=== PATIENT | female | born 1945 | race Two or more races ===

== ENCOUNTER 2021-06-30 21:17 | Inpatient (IN) | payer MEDICAID ==
[~2021-06-30] VITALS: Ht 160 cm; Wt 75.3 kg
[2021-06-30] MEDS ORDERED: ATOR20TA86 PO (21:51)
[2021-06-30] MEDS ORDERED: TRAM50TA4 PO (21:51)
[2021-06-30] MEDS ORDERED: LORA10TA7 PO (21:51)
[2021-06-30] MEDS ORDERED: ENAL-90 PO (21:51)
[2021-06-30] MEDS ORDERED: INSU100V SQ (21:51)
[2021-06-30] MEDS ORDERED: PHEN50 PO (21:51)
[2021-07-01 02:06] LABS: BASOPHILS % (AUTO) 0.8 % (0.0-2.0); EOSINOPHILS % (AUTO) 2.1 % (1.0-6.0); HEMATOCRIT 40.2 % (36-46); HEMOGLOBIN 13.2 g/dL (12.0-16.0); LYMPHOCYTES # (AUTO) 2.7 K/uL (1.0-4.8); LYMPHOCYTES % (AUTO) 31.1 % (22.0-44.0); MEAN CORPUSCULAR HEMOGLOBIN 29.1 pg (26.0-34.0); MEAN CORPUSCULAR HGB CONC 32.9 G/dL (31.0-37.0); MEAN CORPUSCULAR VOLUME 88 fL (80-100); MONOCYTES # (AUTO) 0.7 K/uL (0.1-1.0); MONOCYTES % (AUTO) 8.4 % (2.0-9.0); NEUTROPHILS % (AUTO) 57.6 % (40.0-70.0); PLATELET COUNT (AUTO) 242 K/uL (150-450); RED BLOOD CELL COUNT(AUTO) 4.55 MIL/uL (4.00-5.20); RED CELL DISTRIBUTION WIDTH 13.6 % (11.5-14.5)
[2021-07-01] MEDS ORDERED: SODIUM CHLORIDE 0.9% 1,900 ML IV ONE (02:15)
[2021-07-01] MEDS ORDERED: PIPERACILLIN SODIUM/TAZOBACTAM 4.5 GM in DEXTROSE 5%-WATER 100 ML IV ONE (02:30)
[2021-07-01] MEDS ORDERED: VANCOMYCIN HCL 1.25 GM in DEXTROSE 5%-WATER 250 ML IV ONE (02:30)
[2021-07-01 02:43] LABS: COVID AG,FIA SOURCE NASAL SWAB
[2021-07-01 03:58] LABS: CALCIUM, TOTAL 9.3 mg/dL (8.8-10.5); CREATININE 1.19 mg/dL (0.60-1.30); POTASSIUM 4.1 mmol/L (3.5-5.1)
[2021-07-01 04:04] LABS: ALBUMIN 3.2 g/dL (3.4-5.0); BILIRUBIN,TOTAL 0.3 mg/dL (0.1-1.0); TOTAL PROTEIN, SERUM 7.8 g/dL (6.4-8.2)
[2021-07-01] MEDS ORDERED: DEXTROSE 50%-WATER 25 GM/50 ML SYRINGE IVP PRN (06:30)
[2021-07-01] MEDS ORDERED: ONDANSETRON HCL 4 MG/2 ML VIAL IVP PRN (06:30)
[2021-07-01] MEDS: INSULIN LISPRO 100 UNITS/ML SQ PRN ×4 (07:33→20:09)
[2021-07-01 07:37] LABS: GLUCOSE,POINT OF CARE 264 MG/DL (70-110)
[2021-07-01 08:40] VITALS: BP 119/70
[2021-07-01] MEDS: LORATADINE 10 MG TABLET PO SCH (09:00)
[2021-07-01] MEDS: ENALAPRIL MALEATE 10 MG TABLET PO SCH (09:00)
[2021-07-01 11:57] VITALS: BP 137/55
[2021-07-01] MEDS: HEPARIN SODIUM,PORCINE 5,000 UNITS/ML VIAL SQ SCH ×3 (12:07→23:22)
[2021-07-01] MEDS: PHENYTOIN 50 MG CHEWABLE TABLET PO SCH ×2 (12:07→19:46)
[2021-07-01] MEDS: ATORVASTATIN CALCIUM 20 MG TABLET PO SCH (12:07)
[2021-07-01 13:51] VITALS: BP 136/57
[2021-07-01 17:09] LABS: GLUCOMETER DEV NAME(LOC) 5S.1; GLUCOSE,POINT OF CARE 169 MG/DL (70-110)
[2021-07-01 17:18] LABS: GLUCOMETER DEV NAME(LOC) 5N.3; GLUCOSE,POINT OF CARE 276 MG/DL (70-110)
[2021-07-01 17:24] VITALS: BP 130/62
[2021-07-01 19:25] VITALS: BP 133/51
[2021-07-01] MEDS: INSULIN GLARGINE,HUM.REC.ANLOG 100 UNITS/ML SQ SCH (20:10)
[2021-07-01 22:36] LABS: GLUCOMETER DEV NAME(LOC) 5N.3; GLUCOSE,POINT OF CARE 255 MG/DL (70-110)
[2021-07-01 23:10] VITALS: BP 131/58
[2021-07-02 04:45] VITALS: BP 136/65
[2021-07-02 05:24] LABS: GLUCOMETER DEV NAME(LOC) 5N.3; GLUCOSE,POINT OF CARE 243 MG/DL (70-110)
[2021-07-02] MEDS: INSULIN LISPRO 100 UNITS/ML SQ PRN ×4 (05:55→21:35)
[2021-07-02 07:35] VITALS: BP 110/59
[2021-07-02] MEDS: HEPARIN SODIUM,PORCINE 5,000 UNITS/ML VIAL SQ SCH ×4 (07:56→23:57)
[2021-07-02] MEDS: ACETAMINOPHEN 325 MG TABLET PO PRN (07:57)
[2021-07-02] MEDS: ASPIRIN 81 MG CHEWABLE TABLET PO SCH (07:57)
[2021-07-02] MEDS: ATORVASTATIN CALCIUM 20 MG TABLET PO SCH (07:57)
[2021-07-02] MEDS: LORATADINE 10 MG TABLET PO SCH (07:57)
[2021-07-02] MEDS: PHENYTOIN 50 MG CHEWABLE TABLET PO SCH ×2 (07:58→21:33)
[2021-07-02] MEDS: ENALAPRIL MALEATE 10 MG TABLET PO SCH (09:00)
[2021-07-02 11:18] VITALS: BP 103/56
[2021-07-02 13:31] LABS: GLUCOMETER DEV NAME(LOC) 5N.1C; GLUCOSE,POINT OF CARE 312 MG/DL (70-110)
[2021-07-02 16:23] VITALS: BP 132/56
[2021-07-02 19:42] VITALS: BP 151/50
[2021-07-02] MEDS: INSULIN GLARGINE,HUM.REC.ANLOG 100 UNITS/ML SQ SCH (21:34)
[2021-07-02 23:17] LABS: GLUCOMETER DEV NAME(LOC) 5N.3; GLUCOSE,POINT OF CARE 245 MG/DL (70-110)
[2021-07-02 23:17] LABS: GLUCOMETER DEV NAME(LOC) 5S.1; GLUCOSE,POINT OF CARE 198 MG/DL (70-110)
[2021-07-03] VITALS (7 sets, daily range): BP systolic 123–141; BP diastolic 54–73
[2021-07-03] MEDS: INSULIN LISPRO 100 UNITS/ML SQ PRN ×4 (06:08→20:45)
[2021-07-03 07:21] LABS: GLUCOMETER DEV NAME(LOC) 5S.1; GLUCOSE,POINT OF CARE 162 MG/DL (70-110)
[2021-07-03] MEDS: ASPIRIN 81 MG CHEWABLE TABLET PO SCH (09:27)
[2021-07-03] MEDS: ENALAPRIL MALEATE 10 MG TABLET PO SCH (09:27)
[2021-07-03] MEDS: ATORVASTATIN CALCIUM 20 MG TABLET PO SCH (09:27)
[2021-07-03] MEDS: HEPARIN SODIUM,PORCINE 5,000 UNITS/ML VIAL SQ SCH ×2 (09:27→16:17)
[2021-07-03] MEDS: LORATADINE 10 MG TABLET PO SCH (09:27)
[2021-07-03] MEDS: PHENYTOIN 50 MG CHEWABLE TABLET PO SCH ×2 (09:27→20:47)
[2021-07-03] MEDS: TraMADol HCL 50 MG TABLET PO PRN (09:28)
[2021-07-03 12:38] LABS: GLUCOMETER DEV NAME(LOC) 5S.2B; GLUCOSE,POINT OF CARE 276 MG/DL (70-110)
[2021-07-03 18:36] LABS: GLUCOMETER DEV NAME(LOC) 5S.1; GLUCOSE,POINT OF CARE 259 MG/DL (70-110)
[2021-07-03] MEDS: INSULIN GLARGINE,HUM.REC.ANLOG 100 UNITS/ML SQ SCH (20:45)
[2021-07-03] MEDS: ACETAMINOPHEN 325 MG TABLET PO PRN (20:46)
[2021-07-03 23:55] LABS: GLUCOMETER DEV NAME(LOC) 5N.3; GLUCOSE,POINT OF CARE 178 MG/DL (70-110)
[2021-07-04] MEDS: HEPARIN SODIUM,PORCINE 5,000 UNITS/ML VIAL SQ SCH ×3 (00:15→16:16)
[2021-07-04 04:58] VITALS: BP 141/66
[2021-07-04] MEDS: INSULIN LISPRO 100 UNITS/ML SQ PRN ×4 (06:03→20:04)
[2021-07-04 06:31] LABS: GLUCOMETER DEV NAME(LOC) 5S.1; GLUCOSE,POINT OF CARE 213 MG/DL (70-110)
[2021-07-04 08:51] VITALS: BP 112/70
[2021-07-04] MEDS: ASPIRIN 81 MG CHEWABLE TABLET PO SCH (09:11)
[2021-07-04] MEDS: PHENYTOIN 50 MG CHEWABLE TABLET PO SCH ×2 (09:11→20:05)
[2021-07-04] MEDS: LORATADINE 10 MG TABLET PO SCH (09:12)
[2021-07-04] MEDS: ENALAPRIL MALEATE 10 MG TABLET PO SCH (09:12)
[2021-07-04] MEDS: ATORVASTATIN CALCIUM 20 MG TABLET PO SCH (09:14)
[2021-07-04 11:38] LABS: GLUCOMETER DEV NAME(LOC) 5S.1; GLUCOSE,POINT OF CARE 236 MG/DL (70-110)
[2021-07-04 11:48] VITALS: BP 128/60
[2021-07-04 16:00] VITALS: BP 118/52
[2021-07-04 19:18] VITALS: BP 133/69
[2021-07-04] MEDS: INSULIN GLARGINE,HUM.REC.ANLOG 100 UNITS/ML SQ SCH (20:04)
[2021-07-05 00:03] VITALS: BP 143/79
[2021-07-05] MEDS: HEPARIN SODIUM,PORCINE 5,000 UNITS/ML VIAL SQ SCH ×3 (00:17→17:05)
[2021-07-05 04:15] VITALS: BP 132/78
[2021-07-05] MEDS: INSULIN LISPRO 100 UNITS/ML SQ PRN ×4 (06:42→20:59)
[2021-07-05 07:14] VITALS: BP 133/63
[2021-07-05] MEDS: PHENYTOIN 50 MG CHEWABLE TABLET PO SCH ×2 (08:38→20:58)
[2021-07-05] MEDS: ASPIRIN 81 MG CHEWABLE TABLET PO SCH (08:38)
[2021-07-05] MEDS: LORATADINE 10 MG TABLET PO SCH (08:39)
[2021-07-05] MEDS: ENALAPRIL MALEATE 10 MG TABLET PO SCH (08:39)
[2021-07-05] MEDS: ATORVASTATIN CALCIUM 20 MG TABLET PO SCH (08:39)
[2021-07-05 12:14] LABS: GLUCOMETER DEV NAME(LOC) 5S.1; GLUCOSE,POINT OF CARE 278 MG/DL (70-110)
[2021-07-05 15:49] VITALS: BP 132/47
[2021-07-05] MEDS: TraMADol HCL 50 MG TABLET PO PRN (17:11)
[2021-07-05 19:21] VITALS: BP 110/54
[2021-07-05] MEDS: INSULIN GLARGINE,HUM.REC.ANLOG 100 UNITS/ML SQ SCH (20:59)
[2021-07-05 21:34] LABS: GLUCOMETER DEV NAME(LOC) 5N.3; GLUCOSE,POINT OF CARE 235 MG/DL (70-110)
[2021-07-05 21:35] LABS: GLUCOMETER DEV NAME(LOC) 5N.3; GLUCOSE,POINT OF CARE 215 MG/DL (70-110)
[2021-07-05 21:35] LABS: GLUCOMETER DEV NAME(LOC) 5S.1; GLUCOSE,POINT OF CARE 242 MG/DL (70-110)
[2021-07-05 21:35] LABS: GLUCOMETER DEV NAME(LOC) 5N.3; GLUCOSE,POINT OF CARE 150 MG/DL (70-110)
[2021-07-05 21:35] LABS: GLUCOMETER DEV NAME(LOC) 5N.3; GLUCOSE,POINT OF CARE 303 MG/DL (70-110)
[2021-07-05 23:19] VITALS: BP 137/67
[2021-07-06] MEDS: HEPARIN SODIUM,PORCINE 5,000 UNITS/ML VIAL SQ SCH ×4 (00:39→23:56)
[2021-07-06 05:39] VITALS: BP 139/73
[2021-07-06] MEDS: INSULIN LISPRO 100 UNITS/ML SQ PRN ×3 (06:10→17:15)
[2021-07-06] MEDS: ASPIRIN 81 MG CHEWABLE TABLET PO SCH (07:48)
[2021-07-06] MEDS: PHENYTOIN 50 MG CHEWABLE TABLET PO SCH ×2 (07:48→20:17)
[2021-07-06] MEDS: ENALAPRIL MALEATE 10 MG TABLET PO SCH (07:48)
[2021-07-06] MEDS: LORATADINE 10 MG TABLET PO SCH (07:49)
[2021-07-06] MEDS: ATORVASTATIN CALCIUM 20 MG TABLET PO SCH (07:49)
[2021-07-06 07:52] LABS: GLUCOMETER DEV NAME(LOC) 5S.1; GLUCOSE,POINT OF CARE 201 MG/DL (70-110)
[2021-07-06 11:25] VITALS: BP 115/59
[2021-07-06 11:48] LABS: GLUCOMETER DEV NAME(LOC) 5N.3; GLUCOSE,POINT OF CARE 264 MG/DL (70-110)
[2021-07-06 18:17] LABS: GLUCOMETER DEV NAME(LOC) 5S.1; GLUCOSE,POINT OF CARE 190 MG/DL (70-110)
[2021-07-06 19:10] VITALS: BP 145/68
[2021-07-06] MEDS: INSULIN GLARGINE,HUM.REC.ANLOG 100 UNITS/ML SQ SCH (20:20)
[2021-07-06 23:30] VITALS: BP_SYST 118; BP_SYST 146; BP_DIAS 64; BP_DIAS 67
[2021-07-07] VITALS (7 sets, daily range): BP systolic 100–147; BP diastolic 45–74
[2021-07-07] MEDS: PHENYTOIN 50 MG CHEWABLE TABLET PO SCH ×2 (07:48→21:34)
[2021-07-07] MEDS: ATORVASTATIN CALCIUM 20 MG TABLET PO SCH (07:49)
[2021-07-07] MEDS: ENALAPRIL MALEATE 10 MG TABLET PO SCH (07:49)
[2021-07-07] MEDS: LORATADINE 10 MG TABLET PO SCH (07:49)
[2021-07-07 07:57] LABS: BASOPHILS % (AUTO) 0.6 % (0.0-2.0); EOSINOPHILS % (AUTO) 1.5 % (1.0-6.0); HEMATOCRIT 41.5 % (36-46); LYMPHOCYTES # (AUTO) 2.2 K/uL (1.0-4.8); LYMPHOCYTES % (AUTO) 31.9 % (22.0-44.0); MEAN CORPUSCULAR HEMOGLOBIN 29.6 pg (26.0-34.0); MEAN CORPUSCULAR HGB CONC 33.8 G/dL (31.0-37.0); MEAN CORPUSCULAR VOLUME 88 fL (80-100); MONOCYTES # (AUTO) 0.4 K/uL (0.1-1.0); MONOCYTES % (AUTO) 6.5 % (2.0-9.0); NEUTROPHILS # (AUTO) 4.1 K/uL (1.8-7.7); NEUTROPHILS % (AUTO) 59.5 % (40.0-70.0); PLATELET COUNT (AUTO) 208 K/uL (150-450); RED BLOOD CELL COUNT(AUTO) 4.74 MIL/uL (4.00-5.20); RED CELL DISTRIBUTION WIDTH 13.6 % (11.5-14.5)
[2021-07-07] MEDS: ASPIRIN 81 MG CHEWABLE TABLET PO SCH ×2 (07:57→10:30)
[2021-07-07] MEDS: HEPARIN SODIUM,PORCINE 5,000 UNITS/ML VIAL SQ SCH ×3 (07:57→16:09)
[2021-07-07] MEDS: TraMADol HCL 50 MG TABLET PO PRN (07:59)
[2021-07-07 08:13] LABS: PROTHROMBIN TIME 10.6 SEC (9.4-11.6)
[2021-07-07 08:19] LABS: ALANINE AMINOTRANSFERASE 122 U/L (12-78); ALBUMIN 2.9 g/dL (3.4-5.0); ALKALINE PHOSPHATASE 65 U/L (46-116); ANION GAP 7 mmol/L (8-16); ASPARTATE AMINOTRANSFERASE 175 U/L (15-37); BILIRUBIN,TOTAL 0.2 mg/dL (0.1-1.0); CALCIUM, TOTAL 8.5 mg/dL (8.8-10.5); CARBON DIOXIDE 26 mmol/L (22-29); CHLORIDE 102 mmol/L (98-107); CREATININE 0.74 mg/dL (0.60-1.30); GLUCOSE,RANDOM 227 mg/dL (70-110); POTASSIUM 4.5 mmol/L (3.5-5.1); SODIUM SERUM 135 mmol/L (136-145); TOTAL PROTEIN, SERUM 7.4 g/dL (6.4-8.2); UREA NITROGEN, BLOOD 20 mg/dL (7-18)
[2021-07-07 08:20] LABS: GLOMERULAR FILTR. RATE CALC > 60 mL/min (>60)
[2021-07-07] MEDS ORDERED: IODIXANOL 320 MG/ML 100 ML VIAL ONE (09:34)
[2021-07-07] MEDS ORDERED: SODIUM BICARBONATE 50 MEQ/50 ML VIAL ONE (09:35)
[2021-07-07] MEDS ORDERED: LIDOCAINE/PF 1% 30 ML VIAL ONE (09:35)
[2021-07-07] MEDS ORDERED: HEPARIN SODIUM 1000 UNITS/NS 0 ML ONE (09:35)
[2021-07-07 11:17] LABS: GLUCOMETER DEV NAME(LOC) 5S.1; GLUCOSE,POINT OF CARE 213 MG/DL (70-110)
[2021-07-07 11:17] LABS: GLUCOMETER DEV NAME(LOC) 5S.1; GLUCOSE,POINT OF CARE 225 MG/DL (70-110)
[2021-07-07] MEDS: INSULIN LISPRO 100 UNITS/ML SQ PRN ×3 (11:45→21:38)
[2021-07-07 12:11] LABS: GLUCOMETER DEV NAME(LOC) 5N.3; GLUCOSE,POINT OF CARE 238 MG/DL (70-110)
[2021-07-07 12:30] LABS: GLUCOMETER DEV NAME(LOC) 5S.1; GLUCOSE,POINT OF CARE 326 MG/DL (70-110)
[2021-07-07] MEDS: ACETAMINOPHEN/CODEINE 300-30 MG TABLET PO PRN (13:19)
[2021-07-07] MEDS: INSULIN GLARGINE,HUM.REC.ANLOG 100 UNITS/ML SQ SCH (21:38)
[2021-07-08] VITALS (7 sets, daily range): BP systolic 102–143; BP diastolic 49–72
[2021-07-08] MEDS: HEPARIN SODIUM,PORCINE 5,000 UNITS/ML VIAL SQ SCH ×3 (00:25→17:06)
[2021-07-08 00:48] LABS: GLUCOMETER DEV NAME(LOC) 5S.1; GLUCOSE,POINT OF CARE 225 MG/DL (70-110)
[2021-07-08 05:27] LABS: BASOPHILS % (AUTO) 0.6 % (0.0-2.0); EOSINOPHILS % (AUTO) 2.2 % (1.0-6.0); HEMATOCRIT 40.6 % (36-46); HEMOGLOBIN 13.4 g/dL (12.0-16.0); LYMPHOCYTES # (AUTO) 2.4 K/uL (1.0-4.8); LYMPHOCYTES % (AUTO) 30.6 % (22.0-44.0); MEAN CORPUSCULAR HEMOGLOBIN 29.3 pg (26.0-34.0); MEAN CORPUSCULAR HGB CONC 33.1 G/dL (31.0-37.0); MEAN CORPUSCULAR VOLUME 88 fL (80-100); MONOCYTES # (AUTO) 0.6 K/uL (0.1-1.0); MONOCYTES % (AUTO) 7.4 % (2.0-9.0); NEUTROPHILS # (AUTO) 4.6 K/uL (1.8-7.7); NEUTROPHILS % (AUTO) 59.2 % (40.0-70.0); PLATELET COUNT (AUTO) 214 K/uL (150-450); RED BLOOD CELL COUNT(AUTO) 4.59 MIL/uL (4.00-5.20); RED CELL DISTRIBUTION WIDTH 13.7 % (11.5-14.5)
[2021-07-08 05:33] LABS: ANION GAP 6 mmol/L (8-16); CALCIUM, TOTAL 8.2 mg/dL (8.8-10.5); CARBON DIOXIDE 27 mmol/L (22-29); CHLORIDE 102 mmol/L (98-107); CREATININE 0.84 mg/dL (0.60-1.30); GLUCOSE,RANDOM 189 mg/dL (70-110); POTASSIUM 4.5 mmol/L (3.5-5.1); SODIUM SERUM 135 mmol/L (136-145); UREA NITROGEN, BLOOD 29 mg/dL (7-18)
[2021-07-08] MEDS: INSULIN LISPRO 100 UNITS/ML SQ PRN ×4 (05:34→22:09)
[2021-07-08 05:36] LABS: GLOMERULAR FILTR. RATE CALC > 60 mL/min (>60)
[2021-07-08 06:36] LABS: GLUCOMETER DEV NAME(LOC) 5N.1C; GLUCOSE,POINT OF CARE 180 MG/DL (70-110)
[2021-07-08] MEDS: ATORVASTATIN CALCIUM 20 MG TABLET PO SCH (08:14)
[2021-07-08] MEDS: LORATADINE 10 MG TABLET PO SCH (08:14)
[2021-07-08] MEDS: PHENYTOIN 50 MG CHEWABLE TABLET PO SCH ×2 (08:14→22:04)
[2021-07-08] MEDS: ASPIRIN 81 MG CHEWABLE TABLET PO SCH (08:14)
[2021-07-08] MEDS: ENALAPRIL MALEATE 10 MG TABLET PO SCH (08:14)
[2021-07-08] MEDS: INSULIN GLARGINE,HUM.REC.ANLOG 100 UNITS/ML SQ SCH (22:08)
[2021-07-08] MEDS: TraMADol HCL 50 MG TABLET PO PRN (22:31)
[2021-07-08 23:57] LABS: GLUCOMETER DEV NAME(LOC) 5S.2B; GLUCOSE,POINT OF CARE 280 MG/DL (70-110)
[2021-07-08 23:57] LABS: GLUCOMETER DEV NAME(LOC) 5S.2B; GLUCOSE,POINT OF CARE 246 MG/DL (70-110)
[2021-07-09] VITALS (7 sets, daily range): BP systolic 113–171; BP diastolic 45–69
[2021-07-09] MEDS: HEPARIN SODIUM,PORCINE 5,000 UNITS/ML VIAL SQ SCH ×3 (00:07→16:00)
[2021-07-09 05:19] LABS: GLUCOMETER DEV NAME(LOC) 5N.3; GLUCOSE,POINT OF CARE 226 MG/DL (70-110)
[2021-07-09 06:06] LABS: GLUCOMETER DEV NAME(LOC) 6N.1; GLUCOSE,POINT OF CARE 211 MG/DL (70-110)
[2021-07-09 06:38] LABS: BASOPHILS % (AUTO) 0.5 % (0.0-2.0); EOSINOPHILS % (AUTO) 2.1 % (1.0-6.0); HEMATOCRIT 40.5 % (36-46); HEMOGLOBIN 13.5 g/dL (12.0-16.0); LYMPHOCYTES # (AUTO) 2.9 K/uL (1.0-4.8); LYMPHOCYTES % (AUTO) 34.6 % (22.0-44.0); MEAN CORPUSCULAR HEMOGLOBIN 29.6 pg (26.0-34.0); MEAN CORPUSCULAR HGB CONC 33.2 G/dL (31.0-37.0); MEAN CORPUSCULAR VOLUME 89 fL (80-100); MONOCYTES # (AUTO) 0.6 K/uL (0.1-1.0); MONOCYTES % (AUTO) 7.7 % (2.0-9.0); NEUTROPHILS # (AUTO) 4.6 K/uL (1.8-7.7); NEUTROPHILS % (AUTO) 55.1 % (40.0-70.0); PLATELET COUNT (AUTO) 213 K/uL (150-450); RED BLOOD CELL COUNT(AUTO) 4.55 MIL/uL (4.00-5.20); RED CELL DISTRIBUTION WIDTH 13.6 % (11.5-14.5)
[2021-07-09] MEDS: INSULIN LISPRO 100 UNITS/ML SQ PRN ×3 (06:39→21:22)
[2021-07-09 06:49] LABS: GLUCOMETER DEV NAME(LOC) 6N.1; GLUCOSE,POINT OF CARE 198 MG/DL (70-110)
[2021-07-09 06:51] LABS: PROTHROMBIN TIME 10.6 SEC (9.4-11.6)
[2021-07-09 07:02] LABS: ALANINE AMINOTRANSFERASE 83 U/L (12-78); ALBUMIN 2.9 g/dL (3.4-5.0); ALKALINE PHOSPHATASE 63 U/L (46-116); ANION GAP 3 mmol/L (8-16); ASPARTATE AMINOTRANSFERASE 46 U/L (15-37); BILIRUBIN,TOTAL 0.2 mg/dL (0.1-1.0); CALCIUM, TOTAL 8.4 mg/dL (8.8-10.5); CARBON DIOXIDE 28 mmol/L (22-29); CHLORIDE 103 mmol/L (98-107); CREATININE 0.77 mg/dL (0.60-1.30); GLOMERULAR FILTR. RATE CALC > 60 mL/min (>60); GLUCOSE,RANDOM 191 mg/dL (70-110); POTASSIUM 4.3 mmol/L (3.5-5.1); SODIUM SERUM 134 mmol/L (136-145); TOTAL PROTEIN, SERUM 7.2 g/dL (6.4-8.2); UREA NITROGEN, BLOOD 29 mg/dL (7-18)
[2021-07-09] MEDS ORDERED: IODIXANOL 320 MG/ML 100 ML VIAL ONE ×2 (07:04→10:37)
[2021-07-09] MEDS ORDERED: LIDOCAINE/PF 1% 30 ML VIAL ONE (07:04)
[2021-07-09] MEDS ORDERED: IODIXANOL 320 MG/ML 50 ML VIAL ONE (07:04)
[2021-07-09] MEDS ORDERED: SODIUM BICARBONATE 50 MEQ/50 ML VIAL ONE (07:04)
[2021-07-09] MEDS ORDERED: HEPARIN SODIUM 1000 UNITS/NS 1,000 ML ONE (07:04)
[2021-07-09] MEDS ORDERED: IODIXANOL 320 MG/ML 150 ML VIAL ONE (07:04)
[2021-07-09] MEDS ORDERED: MIDAZOLAM HCL 2 MG/2 ML VIAL ONE ×2 (07:57→10:00)
[2021-07-09] MEDS ORDERED: FentaNYL CITRATE PF 100 MCG/2 ML VIAL ONE (07:57)
[2021-07-09] MEDS: ASPIRIN 81 MG CHEWABLE TABLET PO SCH (08:00)
[2021-07-09] MEDS ORDERED: FentaNYL CITRATE PF 100 MCG/2 ML VIAL IVP ONE ×4 (08:30→10:30)
[2021-07-09] MEDS ORDERED: IODIXANOL 320 MG/ML 150 ML VIAL IARTER ONE (08:30)
[2021-07-09] MEDS ORDERED: MIDAZOLAM HCL 2 MG/2 ML VIAL IVP ONE ×3 (08:30→10:30)
[2021-07-09] MEDS ORDERED: IODIXANOL 320 MG/ML 100 ML VIAL IARTER ONE (08:30)
[2021-07-09] MEDS ORDERED: LIDOCAINE 1% 30 ML/SOD BICARB 8.4% 4 ML SQ ONE (08:30)
[2021-07-09] MEDS ORDERED: HEPARIN SODIUM 1000 UNITS/NS 1,000 ML IARTER ONE (08:30)
[2021-07-09] MEDS ORDERED: SODIUM CHLORIDE 0.9% 500 ML IV ONE (08:30)
[2021-07-09] MEDS ORDERED: VERAPAMIL HCL 2.5 MG/ML 2 ML VIAL ONE ×2 (08:45→09:26)
[2021-07-09] MEDS ORDERED: NITROGLYCERIN 50 MG/D5% WATER 250 ML ONE (08:45)
[2021-07-09] MEDS: ENALAPRIL MALEATE 10 MG TABLET PO SCH (09:00)
[2021-07-09] MEDS ORDERED: VERAPAMIL HCL 2.5 MG/ML 2 ML VIAL IVP ONE (09:00)
[2021-07-09] MEDS: ATORVASTATIN CALCIUM 20 MG TABLET PO SCH (09:00)
[2021-07-09] MEDS: LORATADINE 10 MG TABLET PO SCH (09:00)
[2021-07-09] MEDS ORDERED: HEPARIN SODIUM,PORCINE 5,000 UNITS/ML VIAL IVP ONE (09:00)
[2021-07-09] MEDS: PHENYTOIN 50 MG CHEWABLE TABLET PO SCH ×2 (09:00→20:36)
[2021-07-09] MEDS ORDERED: NITROGLYCERIN/D5W 50 MG/250 ML IV BOTTLE IARTER ONE ×2 (09:15→09:30)
[2021-07-09] MEDS ORDERED: VERAPAMIL HCL 2.5 MG/ML 2 ML VIAL IARTER ONE ×2 (09:15→09:45)
[2021-07-09] MEDS ORDERED: CLOPIDOGREL BISULFATE 300 MG TABLET PO ONE (13:00)
[2021-07-09 17:29] LABS: GLUCOMETER DEV NAME(LOC) 6N.1; GLUCOSE,POINT OF CARE 271 MG/DL (70-110)
[2021-07-09 18:52] LABS: ANION GAP 9 mmol/L (8-16); CALCIUM, TOTAL 8.9 mg/dL (8.8-10.5); CARBON DIOXIDE 26 mmol/L (22-29); CHLORIDE 103 mmol/L (98-107); CREATININE 0.72 mg/dL (0.60-1.30); GLUCOSE,RANDOM 229 mg/dL (70-110); POTASSIUM 4.2 mmol/L (3.5-5.1); SODIUM SERUM 138 mmol/L (136-145); UREA NITROGEN, BLOOD 28 mg/dL (7-18)
[2021-07-09 18:54] LABS: GLOMERULAR FILTR. RATE CALC > 60 mL/min (>60)
[2021-07-09] MEDS: ACETAMINOPHEN 325 MG TABLET PO PRN (20:33)
[2021-07-09] MEDS: INSULIN GLARGINE,HUM.REC.ANLOG 100 UNITS/ML SQ SCH (21:23)
[2021-07-09 22:18] LABS: GLUCOMETER DEV NAME(LOC) 6S.1; GLUCOSE,POINT OF CARE 188 MG/DL (70-110)
[2021-07-10] MEDS: ACETAMINOPHEN/CODEINE 300-30 MG TABLET PO PRN (00:04)
[2021-07-10 00:05] VITALS: BP 119/64
[2021-07-10] MEDS: HEPARIN SODIUM,PORCINE 5,000 UNITS/ML VIAL SQ SCH ×3 (00:08→17:03)
[2021-07-10 04:44] VITALS: BP 109/51
[2021-07-10] MEDS: INSULIN LISPRO 100 UNITS/ML SQ PRN ×4 (06:01→21:01)
[2021-07-10 07:52] LABS: GLUCOMETER DEV NAME(LOC) 6S.1; GLUCOSE,POINT OF CARE 161 MG/DL (70-110)
[2021-07-10] MEDS: PHENYTOIN 50 MG CHEWABLE TABLET PO SCH ×2 (08:08→21:00)
[2021-07-10] MEDS: ASPIRIN 81 MG CHEWABLE TABLET PO SCH (08:08)
[2021-07-10] MEDS: LORATADINE 10 MG TABLET PO SCH (08:09)
[2021-07-10] MEDS: ATORVASTATIN CALCIUM 20 MG TABLET PO SCH (08:09)
[2021-07-10] MEDS: CLOPIDOGREL BISULFATE 75 MG TABLET PO SCH (08:09)
[2021-07-10 08:24] VITALS: BP 121/59
[2021-07-10 13:07] VITALS: BP 126/67
[2021-07-10] MEDS: ENALAPRIL MALEATE 10 MG TABLET PO SCH (13:08)
[2021-07-10 14:28] LABS: GLUCOMETER DEV NAME(LOC) 6S.1; GLUCOSE,POINT OF CARE 242 MG/DL (70-110)
[2021-07-10 15:35] VITALS: BP 120/68
[2021-07-10 19:09] LABS: GLUCOMETER DEV NAME(LOC) 6N.1; GLUCOSE,POINT OF CARE 228 MG/DL (70-110)
[2021-07-10 20:14] VITALS: BP 110/61
[2021-07-10] MEDS: INSULIN GLARGINE,HUM.REC.ANLOG 100 UNITS/ML SQ SCH (21:01)
[2021-07-10 23:47] LABS: GLUCOMETER DEV NAME(LOC) 6S.1; GLUCOSE,POINT OF CARE 236 MG/DL (70-110)
[2021-07-11 00:12] VITALS: BP 123/64
[2021-07-11 05:17] VITALS: BP 116/56
[2021-07-11] MEDS ORDERED: RINGERS SOLUTION,LACTATED 1,000 ML IV SCH (06:00)
[2021-07-11] MEDS ORDERED: SODIUM CHLORIDE 0.9% 1,000 ML ONE (06:40)
[2021-07-11] MEDS ORDERED: LIDOCAINE/PF 1% 30 ML VIAL ONE (06:41)
[2021-07-11] MEDS ORDERED: BUPIVACAINE HCL/PF 0.25% 30 ML VIAL ONE (06:41)
[2021-07-11] MEDS ORDERED: FentaNYL CITRATE PF 100 MCG/2 ML VIAL IVP PRN (06:45)
[2021-07-11] MEDS ORDERED: HYDROmorphone 2 MG/ML VIAL IVP PRN (06:45)
[2021-07-11] MEDS ORDERED: SODIUM CHLORIDE 0.9% 10 ML ONE (06:51)
[2021-07-11] MEDS ORDERED: BACITRACIN 50,000 UNITS/VIAL ONE (06:52)
[2021-07-11] MEDS: OXYGEN THERAPY IH SCH (08:00)
[2021-07-11 08:27] VITALS: BP 110/67
[2021-07-11] MEDS: CLOPIDOGREL BISULFATE 75 MG TABLET PO SCH (08:41)
[2021-07-11] MEDS: HEPARIN SODIUM,PORCINE 5,000 UNITS/ML VIAL SQ SCH ×4 (08:41→23:28)
[2021-07-11] MEDS: ENALAPRIL MALEATE 10 MG TABLET PO SCH (08:41)
[2021-07-11] MEDS: PHENYTOIN 50 MG CHEWABLE TABLET PO SCH ×2 (08:41→20:15)
[2021-07-11] MEDS: ASPIRIN 81 MG CHEWABLE TABLET PO SCH (08:41)
[2021-07-11] MEDS: ATORVASTATIN CALCIUM 20 MG TABLET PO SCH (08:42)
[2021-07-11] MEDS: LORATADINE 10 MG TABLET PO SCH (08:42)
[2021-07-11 11:26] LABS: BASOPHILS % (AUTO) 0.4 % (0.0-2.0); EOSINOPHILS % (AUTO) 0.4 % (1.0-6.0); HEMATOCRIT 40.4 % (36-46); HEMOGLOBIN 13.3 g/dL (12.0-16.0); LYMPHOCYTES # (AUTO) 1.2 K/uL (1.0-4.8); LYMPHOCYTES % (AUTO) 12.9 % (22.0-44.0); MEAN CORPUSCULAR HEMOGLOBIN 29.5 pg (26.0-34.0); MEAN CORPUSCULAR VOLUME 89 fL (80-100); MONOCYTES # (AUTO) 0.2 K/uL (0.1-1.0); MONOCYTES % (AUTO) 1.9 % (2.0-9.0); NEUTROPHILS # (AUTO) 7.9 K/uL (1.8-7.7); NEUTROPHILS % (AUTO) 84.4 % (40.0-70.0); PLATELET COUNT (AUTO) 198 K/uL (150-450); RED BLOOD CELL COUNT(AUTO) 4.51 MIL/uL (4.00-5.20); RED CELL DISTRIBUTION WIDTH 13.7 % (11.5-14.5)
[2021-07-11] MEDS: INSULIN LISPRO 100 UNITS/ML SQ PRN ×2 (11:33→21:00)
[2021-07-11 11:42] LABS: ANION GAP 10 mmol/L (8-16); CALCIUM, TOTAL 8.8 mg/dL (8.8-10.5); CARBON DIOXIDE 25 mmol/L (22-29); CHLORIDE 103 mmol/L (98-107); CREATININE 0.68 mg/dL (0.60-1.30); GLUCOSE,RANDOM 228 mg/dL (70-110); POTASSIUM 4.9 mmol/L (3.5-5.1); SODIUM SERUM 138 mmol/L (136-145); UREA NITROGEN, BLOOD 24 mg/dL (7-18)
[2021-07-11 11:45] LABS: GLOMERULAR FILTR. RATE CALC > 60 mL/min (>60)
[2021-07-11] MEDS ORDERED: HEPARIN SODIUM,PORCINE 1,000 UNITS/ML VIAL IVP ONE (12:00)
[2021-07-11] MEDS ORDERED: PROPOFOL 1% 20 ML VIAL IVP ONE (12:00)
[2021-07-11] MEDS ORDERED: LIDOCAINE/PF 2% 5 ML VIAL IM ONE (12:00)
[2021-07-11] MEDS ORDERED: ONDANSETRON HCL 4 MG/2 ML VIAL IVP ONE (12:00)
[2021-07-11] MEDS ORDERED: DEXAMETHASONE SOD PHOS 4 MG/ML VIAL IVP ONE (12:00)
[2021-07-11 15:17] VITALS: BP 120/65
[2021-07-11] MEDS: ACETAMINOPHEN/CODEINE 300-30 MG TABLET PO PRN ×2 (15:18→20:15)
[2021-07-11 16:37] LABS: GLUCOMETER DEV NAME(LOC) 6N.1; GLUCOSE,POINT OF CARE 228 MG/DL (70-110)
[2021-07-11 19:43] VITALS: BP 116/60
[2021-07-11 20:12] LABS: GLUCOMETER DEV NAME(LOC) 6N.1; GLUCOSE,POINT OF CARE 279 MG/DL (70-110)
[2021-07-11] MEDS: INSULIN GLARGINE,HUM.REC.ANLOG 100 UNITS/ML SQ SCH (21:00)
[2021-07-11 23:28] VITALS: BP 110/45
[2021-07-11 23:49] LABS: GLUCOMETER DEV NAME(LOC) 6N.1; GLUCOSE,POINT OF CARE 356 MG/DL (70-110)
[2021-07-12 05:35] VITALS: BP 113/50
[2021-07-12 06:43] LABS: GLUCOMETER DEV NAME(LOC) 6N.1; GLUCOSE,POINT OF CARE 147 MG/DL (70-110)
[2021-07-12] MEDS: OXYGEN THERAPY IH SCH (08:00)
[2021-07-12 08:11] VITALS: BP 112/60
[2021-07-12] MEDS: PHENYTOIN 50 MG CHEWABLE TABLET PO SCH ×2 (08:39→20:14)
[2021-07-12] MEDS: ASPIRIN 81 MG CHEWABLE TABLET PO SCH (08:39)
[2021-07-12] MEDS: ATORVASTATIN CALCIUM 20 MG TABLET PO SCH (08:39)
[2021-07-12] MEDS: CLOPIDOGREL BISULFATE 75 MG TABLET PO SCH (08:39)
[2021-07-12] MEDS: LORATADINE 10 MG TABLET PO SCH (08:39)
[2021-07-12] MEDS: HEPARIN SODIUM,PORCINE 5,000 UNITS/ML VIAL SQ SCH ×3 (08:40→23:32)
[2021-07-12] MEDS: ENALAPRIL MALEATE 10 MG TABLET PO SCH (09:00)
[2021-07-12] MEDS: INSULIN LISPRO 100 UNITS/ML SQ PRN ×3 (12:04→20:15)
[2021-07-12 12:49] LABS: GLUCOMETER DEV NAME(LOC) 6S.1; GLUCOSE,POINT OF CARE 207 MG/DL (70-110)
[2021-07-12 16:06] VITALS: BP 126/57
[2021-07-12 18:42] LABS: GLUCOMETER DEV NAME(LOC) 6S.1; GLUCOSE,POINT OF CARE 256 MG/DL (70-110)
[2021-07-12] MEDS: INSULIN GLARGINE,HUM.REC.ANLOG 100 UNITS/ML SQ SCH (20:15)
[2021-07-12 20:30] VITALS: BP 134/70
[2021-07-12] MEDS: ACETAMINOPHEN/CODEINE 300-30 MG TABLET PO PRN (23:32)
[2021-07-12 23:37] VITALS: BP 143/73
[2021-07-13 00:03] LABS: GLUCOMETER DEV NAME(LOC) 6N.1; GLUCOSE,POINT OF CARE 238 MG/DL (70-110)
[2021-07-13 04:25] VITALS: BP 129/60
[2021-07-13] MEDS: ACETAMINOPHEN/CODEINE 300-30 MG TABLET PO PRN ×2 (05:17→21:00)
[2021-07-13] MEDS: INSULIN LISPRO 100 UNITS/ML SQ PRN ×3 (05:18→21:42)
[2021-07-13 06:38] LABS: GLUCOMETER DEV NAME(LOC) 6N.1; GLUCOSE,POINT OF CARE 167 MG/DL (70-110)
[2021-07-13 07:32] VITALS: BP 117/66
[2021-07-13] MEDS: OXYGEN THERAPY IH SCH (08:00)
[2021-07-13 08:14] LABS: BASOPHILS % (AUTO) 0.5 % (0.0-2.0); EOSINOPHILS % (AUTO) 2.2 % (1.0-6.0); HEMATOCRIT 38.2 % (36-46); HEMOGLOBIN 12.8 g/dL (12.0-16.0); LYMPHOCYTES # (AUTO) 2.9 K/uL (1.0-4.8); LYMPHOCYTES % (AUTO) 32.1 % (22.0-44.0); MEAN CORPUSCULAR HEMOGLOBIN 29.6 pg (26.0-34.0); MEAN CORPUSCULAR HGB CONC 33.4 G/dL (31.0-37.0); MEAN CORPUSCULAR VOLUME 89 fL (80-100); MONOCYTES # (AUTO) 0.7 K/uL (0.1-1.0); NEUTROPHILS # (AUTO) 5.2 K/uL (1.8-7.7); NEUTROPHILS % (AUTO) 57.2 % (40.0-70.0); PLATELET COUNT (AUTO) 200 K/uL (150-450); RED BLOOD CELL COUNT(AUTO) 4.31 MIL/uL (4.00-5.20); RED CELL DISTRIBUTION WIDTH 13.4 % (11.5-14.5)
[2021-07-13] MEDS: LORATADINE 10 MG TABLET PO SCH (08:30)
[2021-07-13] MEDS: ENALAPRIL MALEATE 10 MG TABLET PO SCH (08:30)
[2021-07-13] MEDS: CLOPIDOGREL BISULFATE 75 MG TABLET PO SCH (08:30)
[2021-07-13] MEDS: ASPIRIN 81 MG CHEWABLE TABLET PO SCH (08:30)
[2021-07-13] MEDS: PHENYTOIN 50 MG CHEWABLE TABLET PO SCH ×2 (08:30→20:57)
[2021-07-13] MEDS: ATORVASTATIN CALCIUM 20 MG TABLET PO SCH (08:30)
[2021-07-13] MEDS: HEPARIN SODIUM,PORCINE 5,000 UNITS/ML VIAL SQ SCH ×3 (08:31→23:38)
[2021-07-13 09:28] LABS: ALANINE AMINOTRANSFERASE 40 U/L (12-78); ALBUMIN 3.1 g/dL (3.4-5.0); ALKALINE PHOSPHATASE 64 U/L (46-116); ANION GAP 8 mmol/L (8-16); ASPARTATE AMINOTRANSFERASE 20 U/L (15-37); BILIRUBIN,TOTAL 0.3 mg/dL (0.1-1.0); CALCIUM, TOTAL 8.4 mg/dL (8.8-10.5); CARBON DIOXIDE 27 mmol/L (22-29); CHLORIDE 102 mmol/L (98-107); CREATININE 0.79 mg/dL (0.60-1.30); GLUCOSE,RANDOM 139 mg/dL (70-110); POTASSIUM 3.7 mmol/L (3.5-5.1); SODIUM SERUM 137 mmol/L (136-145); TOTAL PROTEIN, SERUM 7.8 g/dL (6.4-8.2); UREA NITROGEN, BLOOD 22 mg/dL (7-18)
[2021-07-13 09:30] LABS: GLOMERULAR FILTR. RATE CALC > 60 mL/min (>60)
[2021-07-13 16:21] VITALS: BP 123/59
[2021-07-13 16:50] LABS: GLUCOMETER DEV NAME(LOC) 6S.1; GLUCOSE,POINT OF CARE 215 MG/DL (70-110)
[2021-07-13 18:59] LABS: GLUCOMETER DEV NAME(LOC) 6N.1; GLUCOSE,POINT OF CARE 183 MG/DL (70-110)
[2021-07-13 20:28] VITALS: BP 113/68
[2021-07-13] MEDS: INSULIN GLARGINE,HUM.REC.ANLOG 100 UNITS/ML SQ SCH (21:43)
[2021-07-14 00:05] VITALS: BP 120/55
[2021-07-14 04:47] VITALS: BP 110/54
[2021-07-14 05:32] LABS: GLUCOMETER DEV NAME(LOC) 6N.1; GLUCOSE,POINT OF CARE 197 MG/DL (70-110)
[2021-07-14] MEDS: INSULIN LISPRO 100 UNITS/ML SQ PRN ×3 (05:59→17:17)
[2021-07-14 06:51] LABS: BASOPHILS % (AUTO) 0.4 % (0.0-2.0); EOSINOPHILS % (AUTO) 2.4 % (1.0-6.0); HEMATOCRIT 36.9 % (36-46); HEMOGLOBIN 12.3 g/dL (12.0-16.0); LYMPHOCYTES # (AUTO) 2.5 K/uL (1.0-4.8); LYMPHOCYTES % (AUTO) 27.8 % (22.0-44.0); MEAN CORPUSCULAR HEMOGLOBIN 29.4 pg (26.0-34.0); MEAN CORPUSCULAR HGB CONC 33.2 G/dL (31.0-37.0); MEAN CORPUSCULAR VOLUME 89 fL (80-100); MONOCYTES # (AUTO) 0.8 K/uL (0.1-1.0); MONOCYTES % (AUTO) 8.4 % (2.0-9.0); NEUTROPHILS # (AUTO) 5.6 K/uL (1.8-7.7); PLATELET COUNT (AUTO) 193 K/uL (150-450); RED BLOOD CELL COUNT(AUTO) 4.16 MIL/uL (4.00-5.20); RED CELL DISTRIBUTION WIDTH 13.5 % (11.5-14.5)
[2021-07-14 07:02] LABS: ANION GAP 9 mmol/L (8-16); CALCIUM, TOTAL 8.6 mg/dL (8.8-10.5); CARBON DIOXIDE 26 mmol/L (22-29); CHLORIDE 102 mmol/L (98-107); CREATININE 0.71 mg/dL (0.60-1.30); GLUCOSE,RANDOM 204 mg/dL (70-110); POTASSIUM 4.2 mmol/L (3.5-5.1); SODIUM SERUM 137 mmol/L (136-145); UREA NITROGEN, BLOOD 22 mg/dL (7-18)
[2021-07-14 07:04] LABS: GLOMERULAR FILTR. RATE CALC > 60 mL/min (>60)
[2021-07-14 07:48] LABS: GLUCOMETER DEV NAME(LOC) 6N.1; GLUCOSE,POINT OF CARE 224 MG/DL (70-110)
[2021-07-14] MEDS: OXYGEN THERAPY IH SCH (08:00)
[2021-07-14 08:15] VITALS: BP 108/62
[2021-07-14] MEDS: ASPIRIN 81 MG CHEWABLE TABLET PO SCH (08:40)
[2021-07-14] MEDS: PHENYTOIN 50 MG CHEWABLE TABLET PO SCH ×2 (08:41→19:38)
[2021-07-14] MEDS: ENALAPRIL MALEATE 10 MG TABLET PO SCH (08:41)
[2021-07-14] MEDS: ATORVASTATIN CALCIUM 20 MG TABLET PO SCH (08:41)
[2021-07-14] MEDS: CLOPIDOGREL BISULFATE 75 MG TABLET PO SCH (08:41)
[2021-07-14] MEDS: LORATADINE 10 MG TABLET PO SCH (08:44)
[2021-07-14] MEDS: HEPARIN SODIUM,PORCINE 5,000 UNITS/ML VIAL SQ SCH ×2 (08:49→17:19)
[2021-07-14 12:58] LABS: GLUCOMETER DEV NAME(LOC) 6N.1; GLUCOSE,POINT OF CARE 217 MG/DL (70-110)
[2021-07-14 15:51] VITALS: BP 125/59
[2021-07-14] MEDS ORDERED: CLOP75TA60 PO (15:58)
[2021-07-14] MEDS ORDERED: ASPI-1450 PO (16:01)
[2021-07-14] MEDS ORDERED: ACET650S24 PR (16:06)
[2021-07-14] MEDS ORDERED: ACET-2247 PO (16:08)
[2021-07-14 20:13] VITALS: BP 122/57
[2021-07-14] MEDS ORDERED: SODIUM CL IRRIG SOLN BOTTLE 250 ML IRRIG ONE (20:15)
[2021-07-15 06:09] LABS: GLUCOMETER DEV NAME(LOC) 6S.1; GLUCOSE,POINT OF CARE 249 MG/DL (70-110)
== END 2021-07-14 21:05 | disposition home or self-care (01) | DRG 182 ==
LOC: EMS 21:20 → EDBD 21:20 → 5N 07-01 05:00 → 5S 07-01 08:30 → 6N 07-08 19:00
PROVIDERS: ADMIT Internal Medicine; ATTEND Internal Medicine
PROC: 04CM3ZZ Extirpation of Matter from Right Popliteal Artery, Percutaneous Approach (ICD-10-PCS; principal; 2021-07-09)
PROC: 04CK3ZZ Extirpation of Matter from Right Femoral Artery, Percutaneous Approach (ICD-10-PCS; 2021-07-09)
PROC: 047K3DZ Dilation of Right Femoral Artery with Intraluminal Device, Percutaneous Approach (ICD-10-PCS; 2021-07-09)
PROC: 047M3DZ Dilation of Right Popliteal Artery with Intraluminal Device, Percutaneous Approach (ICD-10-PCS; 2021-07-09)
PROC: 047M34Z Dilation of Right Popliteal Artery with Drug-eluting Intraluminal Device, Percutaneous Approach (ICD-10-PCS; 2021-07-09)
PROC: B41J1ZZ Fluoroscopy of Other Lower Arteries using Low Osmolar Contrast (ICD-10-PCS; 2021-07-09)
DX: E11.52 Type 2 diabetes mellitus with diabetic peripheral angiopathy with gangrene (principal); E43 Unspecified severe protein-calorie malnutrition; I96 Gangrene, not elsewhere classified; E11.65 Type 2 diabetes mellitus with hyperglycemia; I10 Essential (primary) hypertension; E78.5 Hyperlipidemia, unspecified; G40.909 Epilepsy, unspecified, not intractable, without status epilepticus; E78.00 Pure hypercholesterolemia, unspecified; Z20.822 Contact with and (suspected) exposure to COVID-19; Z87.891 Personal history of nicotine dependence
CPT/HCPCS: 36200; 37205; 37229; 75630; 75716; 75962; 80048; 80053; 82962; 83605; 85025; 85610; 85730; 87040; 87070; 87077; 88305; 88311; 93925; 93926; 99285; J0690; J1100; J1644; J1815; J2250; J2405; J2543; J2704; J3010; J3370; J3490; J7030; J7060; J7120; Q9967; 36415-L1; 36415-TC; C1725; Z7610